=== PATIENT | male | born 1985 | race African-American/Black ===

== ENCOUNTER 2017-11-10 22:51 | Emergency (ER) | payer SELFPAY ==
[~2017-11-10] VITALS: Ht 177.8 cm; Wt 100.0 kg
[2017-11-11 01:46] VITALS: BP 133/86
== END 2017-11-11 01:56 | disposition home or self-care (01) ==
LOC: ER 22:51
DX: R21 Rash and other nonspecific skin eruption (principal)
CPT/HCPCS: 99283